=== PATIENT | male | born 1960 | race Caucasian/White ===

== ENCOUNTER 2016-11-13 06:00 | Day surgery (SDC) | payer MEDICARE, BC ==
[2016-11-12 16:52] VITALS: Ht 175.3 cm; Wt 82.0 kg
[~2016-11-13] VITALS: Ht 175.3 cm; Wt 82.0 kg
[2016-11-13] VITALS (8 sets, daily range): BP systolic 111–125; BP diastolic 61–71; PULSE 62–70; RESP 13–32
[~2016-11-13 06:00] MED LIST: CALC667C PO; FER325 PO; GEMF600T PO; HYDR-3671 PO; ICNCLON PO; METO-429 PO; PRED5 PO; amlodipine besylate; nephro-vite
[2016-11-13 07:06] LABS: INR 1.01; PROTIME 13.3 Sec (12.2-14.2)
[2016-11-13 07:10] LABS: BASOPHILS % 0.7 % (0.0-2.0); EOSINOPHILS # 0.2 10^3/ul (0.0-0.5); EOSINOPHILS % 2.9 % (0.0-7.0); HEMATOCRIT 32.9 % (42.0-52.0); HEMOGLOBIN 11.4 g/dl (14.0-18.0); LYMPHOCYTES # 2.3 10^3/ul (0.8-2.9); LYMPHOCYTES % 34.6 % (15.0-51.0); MEAN CORPUSCULAR HEMOGLOBIN 30.4 pg (29.0-33.0); MEAN CORPUSCULAR HGB CONC 34.8 g/dl (32.0-37.0); MEAN CORPUSCULAR VOLUME 87.5 fl (82.0-101.0); MEAN PLATELET VOLUME 7.4 fl (7.4-10.4); MONOCYTE # 0.7 10^3/ul (0.3-0.9); NEUTROPHIL # 3.4 10^3/ul (1.6-7.5); NEUTROPHILS % 50.8 % (39.0-77.0); PLATELET COUNT 257 10^3/UL (140-440); RED BLOOD COUNT 3.76 10^6/ul (4.70-6.10); RED CELL DISTRIBUTION WIDTH 14.8 % (11.5-14.5); UNCORRECTED WBC 6.6 10^3/ul (4.8-10.8); WHITE BLOOD COUNT 6.6 10^3/ul (4.8-10.8)
[2016-11-13 07:11] LABS: CALCIUM 9.5 mg/dl (8.4-10.2); CREATININE 6.92 mg/dl (0.61-1.24); POTASSIUM 4.1 mmol/L (3.5-5.1)
[2016-11-13 07:38] LABS: CONDITION 1; LH ANALYZER COMMENTS 1
[2016-11-13] MEDS ORDERED: HEPARIN 1000 UNITS/NS (A-LINE) 1,000 ML ONE (07:41)
[2016-11-13] MEDS ORDERED: LIDOCAINE 1% (MDV) 20 ML INJ ONE (07:41)
[2016-11-13] MEDS ORDERED: SOD CHLORIDE 0.9% 500 ML ONE (07:41)
[2016-11-13] MEDS ORDERED: FENTAnyl 50 MCG/ML VIAL ONE (07:53)
[2016-11-13] MEDS ORDERED: MIDAZOLAM 1 MG/ML 2 ML INJ ONE (07:53)
--- NOTE | 2016-11-13 09:21 | OPR ---
DATE OF OPERATION: PREOPERATIVE DIAGNOSIS: Dysfunctional left upper extremity arteriovenous fistula. POSTOPERATIVE DIAGNOSIS: Dysfunctional left upper extremity arteriovenous fistula. OPERATION PERFORMED: 1. Left cephalic vein angioplasty 10 x 40-mm balloon. 2. Left arm shuntogram. 3. Left upper extremity venogram. 4. Interpretation and supervision of the shuntogram, venogram and angioplasty. 5. Central venogram. 6. Interpretation and supervision of the central venogram. 7. Conscious sedation for 1 hour. 8. Left upper extremity arteriogram. SURGEON: Liberty Patton MD ANESTHESIA: Local, plus IV sedation. INFORMED CONSENT: The risks, benefits, complications, alternative therapies, and high-risk nature o f the operation were fully explained to the patient and the family and consent obtained. OPERATIVE TECHNIQUE: The patient was placed in the supine position, prepped and draped in the usual sterile fashion. 1% lidocaine was used throughout the operation for local anesthesia. Access was g ained in the left arm AV fistula. A guidewire was advanced through without any difficulties. A 4-Fr ench catheter was advanced over the guidewire and a shuntogram was done, which showed 90% stenosis o f the cephalic vein in the mid cephalic vein. The patient also had a tortuous axillary vein; howeve r, it was patent. The subclavian vein was patent, the innominate vein is patent, the superior vena cava is patent. For a guidewire using a 10 x 40-mm balloon, the cephalic vein was angioplastied. A final venogram wa s done, which showed less than 50% stenosis in this area. Arteriogram was also done, which showed n o arterial anastomosis. The catheter was then removed. Appropriate dressings were applied. The pat ient tolerated the procedure well. Dictated By: LIBERTY VELASQUEZ/NTS Conf#: [id number] DID#: [id number]
[2016-11-13 10:04] LABS: PARTIAL THROMBOPLASTIN TIME 35.8 Sec (25.0-35.0)
== END 2016-11-13 09:35 | disposition home or self-care (01) ==
LOC: SDS 06:00 → MERGE 06:00 → SDS 06:03
PROVIDERS: ATTEND Thoracic Surgery (Cardiothoracic Vascular Surgery)
DX: T82.898A Other specified complication of vascular prosthetic devices, implants and grafts, initial encounter (principal); Y84.1 Kidney dialysis as the cause of abnormal reaction of the patient, or of later complication, without mention of misadventure at the time of the procedure; Y92.89 Other specified places as the place of occurrence of the external cause; I12.0 Hypertensive chronic kidney disease with stage 5 chronic kidney disease or end stage renal disease; N18.6 End stage renal disease
CPT/HCPCS: 37248; 80048; 85025; 85610; 85730; J1644; J2250; J3010; J7040